=== PATIENT | male | born 1950 | race African-American/Black ===

== ENCOUNTER 2016-12-07 09:17 | Outpatient (CLI) ==
--- NOTE | 2016-12-07 10:17 | DI ---
EXAM: Chest two view, frontal and lateral views. HISTORY: Hypertension. COMPARISON: 08/17/2015. FINDINGS: The heart size is normal. Atherosclerotic calcifications present. There is no pulmonary vascular congestion. The lungs are clear. No pleural effusion or pneumothorax is seen. No acute osseous abnormality identified. Since the prior study, there has been no significant interval platt e. IMPRESSION: No acute cardiopulmonary process.
--- NOTE | 2016-12-07 10:19 | DI ---
EXAM: Radiographs, thoracic spine HISTORY: Back pain. COMPARISON: 08/11/2014. TECHNIQUE: Three views. FINDINGS: Mild left convex curvature centered near T8-9 noted. Alignment is normal. Mild anterior wedging of T8, T9 and T10 are stable. Otherwise, vertebral body heights are maintained. Disc heights are norm al in mild endplate osteophyte formation noted. Adjacent soft tissues are unremarkable. Since the pr ior study, there has been no significant interval change. IMPRESSION: 1. Mild degenerative disc disease. 2. Stable chronic mild wedging of T8, T9 and T10.
== END 2016-12-07 09:18 | disposition home or self-care (01) ==
LOC: RAD 09:17
PROVIDERS: ATTEND Internal Medicine
DX: M54.5 Low back pain (principal); I10 Essential (primary) hypertension

== ENCOUNTER 2017-07-15 10:25 | Outpatient (CLI) | END 2017-07-15 10:26 | disposition home or self-care (01) | LOC: LAB 10:25 | PROVIDERS: ATTEND Student in an Organized Health Care Education/Training Program | DX: N40.1 Benign prostatic hyperplasia with lower urinary tract symptoms (principal); N13.8 Other obstructive and reflux uropathy; Z12.5 Encounter for screening for malignant neoplasm of prostate | CPT/HCPCS: 36415 ==